=== PATIENT | male | born 1985 | race Caucasian/White ===

== ENCOUNTER 2022-11-25 19:03 | Emergency (ER) | payer SELFPAY ==
[2022-11-25 19:08] VITALS: BP 168/97; PULSE 112; RESP 20; TEMP 38.7; O2SAT 98
--- NOTE | 2022-11-25 19:28 | ED.URI ---
HPI - URI/Sore Throat General Chief Complaint: Upper Respiratory Infection Stated Complaint: fever sore throat headache Source: patient and RN notes reviewed History of Present Illness HPI Narrative: 37 yo M presents to urgent care with complaints of sore throat, fevers, and body aches x 3 days. Pt also reports SOLORIO and cough. Pt states he is now noticing swollen lymph nodes in his neck. Pt has taken Tylenol at home, last dose was early this morning. Denies any fevers, chills, vomiting, or diarrhea. Related Data Allergies Allergy/AdvReac Type Severity Reaction Status Date / Time No Known Allergies Allergy Verified 11/25/22 19:10 Review of Systems Review of Systems: CONSTITUTIONAL: Fevers EYES: Denies visual changes, redness, or discharge. ENT: Sore throat CARDIOVASCULAR: Denies chest pain, palpitations, or edema. RESPIRATORY: cough and dyspnea. GASTROINTESTINAL: Denies abdominal pain, nausea, vomiting, or diarrhea. GENITOURINARY: Denies dysuria or hematuria. SKIN: Denies rash or itching. MUSCULOSKELETAL: Denies back pain, joint pain, or myalgia. NEUROLOGIC: Headache PMFSH Comments At the time of my signature, I reviewed and agree with the nursing past medical, surgical, social, and family history. There is no relevant family history pertinent to the patient complaint. Exam Narrative: GENERAL: This is a well-nourished, well-developed patient, sweating HEAD: normocephalic, atraumatic EARS: External ears normal, auditory canals clear and without drainage, TMs normal without perforation. Hearing grossly intact. NOSE: External nose normal with no obvious nasal discharge, nares without redness, no rhinorrhea. THROAT: Mucous membranes moist, posterior pharynx erythemic. Bilateral tonsils 2+ with exudate noted. Uvula midline. NECK: Neck supple, non-tender with mild lymphadenopathy. CARDIOVASCULAR: Regular rate and rhythm without murmurs, gallops, or rubs. RESPIRATORY: Clear to auscultation. Breath sounds equal bilaterally. No wheezes, rales, or rhonchi. SKIN: warm, intact with no suspicious lesions or rash, good texture and turgor. NEURO: awake, alert, and oriented to person, place and time. There were no obvious focal neurologic abnormalities. Course Course Level of Care: Express Care Visit Vital Signs Vital signs: Vital Signs Temperature 101.7 F H 11/25/22 19:08 Pulse Rate 112 H 11/25/22 19:08 Respiratory Rate 20 11/25/22 19:08 Blood Pressure 168/97 H 11/25/22 19:08 Pulse Oximetry 98 11/25/22 19:08 Oxygen Delivery Room Air 11/25/22 19:08 Temperature 101.7 F H 11/25/22 19:58 Pulse Rate 112 H 11/25/22 19:08 Respiratory Rate 20 11/25/22 19:08 Blood Pressure 168/97 H 11/25/22 19:08 Pulse Oximetry 98 11/25/22 19:08 Oxygen Delivery Room Air 11/25/22 19:08 Reviewed MDM - URI/Sore Throat MDM Narrative Medical decision making narrative: May take ibuprofen and/or Tylenol if needed for discomfort and fevers. Get plenty of fluids. Go to the emergency department any new or worsening symptoms. Follow-up with primary care physician in 2-5 days. Differential Diagnosis Differential diagnosis: Likely upper respiratory infection, viral infection and pharyngitis Lab Data Attestation: I reviewed the patient's lab results. Labs: Lab Results 11/25/22 Range/Units 19:22 POC SARS CoV-2 Ag Negative (Negative) Influenza A Screen Negative Reference Range: Negative Influenza B Screen Negative Reference Range: Negative Strep Screen Presumptive Negative *(Reference Range: Negative)* Critical Care Time Critical Care Time Critical Care Time: No Discharge Plan Discharge Clinical Impression: Viral infection Pharyngitis Qualifiers: Pharyngitis/tonsillitis etiology: unspecified etiology Qualified C
[2022-11-25 19:58] VITALS: TEMP 38.7
[2022-11-25] MEDS: IBUPROFEN 400 MG TABLET 800 MG PO (19:58)
== END 2022-11-25 20:04 | disposition home or self-care (01) ==
PROVIDERS: Emergency Provider Nurse Practitioner Family
DX: B34.9 Viral infection, unspecified (principal); J02.9 Acute pharyngitis, unspecified; Z20.822 Contact with and (suspected) exposure to COVID-19
CPT/HCPCS: 87081; 87426; 87804; 87880; 99213; A9270; C9803; G0463